=== PATIENT | female | born 1935 | race Caucasian/White ===

== ENCOUNTER 2018-05-31 10:01 | Emergency (ER) | payer MEDICARE, OTHER ==
[~2018-05-31] VITALS: Ht 157.5 cm; Wt 57.7 kg
[2018-05-31] MEDS ORDERED: DiphenhydrAMINE HCL 25 MG CAPSULE PO ONE (12:00)
[2018-05-31] MEDS ORDERED: DEXAMETHASONE SOD PHOS 4 MG/ML 5 ML VIAL IM ONE (12:00)
[2018-05-31] MEDS ORDERED: FAMOTIDINE 20 MG TABLET PO ONE (12:00)
[2018-05-31 12:48] VITALS: BP 167/81
== END 2018-05-31 13:07 | disposition home or self-care (01) ==
LOC: EMS 10:04
DX: L50.9 Urticaria, unspecified (principal)
CPT/HCPCS: 96372; 99283; J1100